=== PATIENT | female | born 1950 | race Caucasian/White ===

== ENCOUNTER 2017-10-28 11:30 | Inpatient (IN) | payer MEDICARE, BC ==
[2017-10-28] MEDS ORDERED: Meropenem 500 MG SDV ONE (11:55)
[2017-10-28] MEDS ORDERED: Scopolamine 1.5 MG Transdermal Patch TOP SCH (13:05)
[2017-10-28] MEDS ORDERED: Acetaminophen 500 MG Tab PO ONE (13:05)
[2017-10-28] MEDS ORDERED: Lactated Ringers 1,000 ML IV SCH (13:15)
[2017-10-28] MEDS ORDERED: cefOXitin 2 GM in Premix Bag 1 BAG IV ONE (13:15)
[2017-10-28] MEDS ORDERED: Diltiazem 120 MG Cap.CD PO ONE ×2 (13:24→13:30)
--- NOTE | 2017-10-28 13:26 | PCM.HP ---
H&P History of Present Illness - General Date of Service: 10/28/17 - History of Present Illness Initial Comments - Free Text/Narative: Emma started to have severe abdominal pain Wednesday night and this is . The pain was so severe on Wednesday that she couldn't even straighten up. She had worse pain than she's ever had before and had low-grade fevers. She did not have any diarrhea but could not eat as the pain was a grade 8/10 and she almost came to the emergency room because of severe pain. She's feeling better yesterday. The pain was very minimal. She's never had a similar problem before. - Related Data Allergies/Adverse Reactions: Allergies Allergy/AdvReac Type Severity Reaction Status Date / Time morphine AdvReac Vomiting Verified 10/28/17 13:18 Home Medications: Home Meds Furosemide [Lasix] 20 mg PO DAILY 04/03/15 [History] Diltiazem HCl [Cartia Xt] 240 mg PO DAILY 10/28/17 [History] Warfarin [Coumadin] 5 mg PO .Q3D 10/28/17 [History] Past Medical History HEENT History: Reports: Impaired Vision Cardiovascular History: Reports: Afib, Hypertension Gastrointestinal History: Reports: Colon Polyp, GI Bleed, Hemorrhoids, Other ( See Below) Other Gastrointestinal History: bleeding ulcer 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: Musculoskeletal History: Reports: Osteoarthritis Other Musculoskeletal History: right knee pain Endocrine/Metabolic History: Reports: Obesity/BMI 30+, Other (See Below) Other Endocrine/Metabolic History: pre diabetic - Infectious Disease History Infectious Disease History: Reports: Chicken Pox, Measles, Mumps, Rubella, Shingles - Past Surgical History HEENT Surgical History: Reports: Oral Surgery, Tonsillectomy, Other (See Below) Other HEENT Surgeries/Procedures: all wisdom teeth removed Cardiovascular Surgical History: Reports: Other (See Below) Other Cardiovascular Surgeries/Procedures: heart ablation for a fib GI Surgical History: Reports: Cholecystectomy, Colonoscopy, EGD Other GI Surgeries/Procedures: hemorrhoidectomy Female Surgical History: Reports: Hysterectomy Musculoskeletal Surgical History: Reports: Arthroscopic Knee - History Comment History Comment: Past Surgical History: Hysterectomy, Cholecystectomy, Rt Knee Laproscopic Meniscus Repair, Hemorrhoidectomy, Tonsillectomy, Attempted Cardioversion (Failed), Cardiac ablation for Afib. Ongoing medical problems: A- FIB, Morbid Obesity, Arthritis, Cataract, DM ll, HTN, Obstructive Sleep Apnea, . Preventive care: 10/13/17 A1c 6.0. 09/17/16 Lipids, CMP, CBC, A1c 6.2, TSH 0.68. 04/04/15 Colonoscopy, diverticuli. 03/26/15 Mammogram, normal. 08/31/13 Lexiscan Stress Test. 09/14/02 Colonoscopy, hx colon ca in family. 10/10/13 does not want a colonoscopy or FOBT.. 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 Quit Smoking 2012. Does Drink Alcohol. . Wears a seat belt. History was reviewed. Social & Family History - Family History Family Medical History: Noncontributory HEENT: Reports: Impaired Vision Cardiac: Reports: Hypertension : Reports: Renal Calculus Musculoskeletal: Reports: Gout Neurological: Reports: CVA Psychiatric: Reports: Anxiety, Depression Endocrine/Metabolic: Reports: Diabetes, type II Oncologic: Reports: Colon, Other (See Below) Other Oncologic Family History: stomach - Tobacco Use Smoking Status *Q: Former Smoker Years of Tobacco use: 3 Packs/Tins Daily: 0.2 Used Tobacco, but Quit: Yes Month/Year Tobacco Last Used: july Second Hand Smoke Exposure: No - Caffeine Use Caffeine Use: Reports: Coffee - Alcohol Use Days Per Week of Alcohol Use: 3 Number of Drinks Per Day: 1 Total Drinks Per Week: 3 - Recreational Drug Use Recreational Drug Use: No H&P Review of Systems - Review of Systems: Review Of Systems: See Below General: Reports: Fever, Weakness, Decreased Appetite HEENT: Reports: No Symptoms Pulmonary: Reports: No Symptoms Cardiovascular: Reports: No Symptoms Gastrointestinal: Reports: Abdominal Pain, Bloody Stool Genitourinary: Reports: No Symptoms Musculoskeletal: Reports: No Symptoms Skin: Reports: No Symptoms Psychiatric: Reports: No Symptoms Neurological: Reports: No Symptoms Hematologic/Lymphatic: Reports: No Symptoms Immunologic: Reports: No Symptoms Exam - Exam Exam: See Below - Vital Signs Weight: 247 lb 12.8 oz - Exam General: Alert, Oriented, 4 HEENT: PERRLA, Hearing Intact, Mucosa Moist & [place], Nares Patent, Normal Nasal Septum, Posterior Pharynx Clear, Conjunctiva Clear, EOMI, EACs Clear, TMs Clear Neck: Supple, Trachea Midline, 2 Lungs: Clear to Auscultation, Normal Respiratory Effort Cardiovascular: Regular Rate, Regular Rhythm GI/Abdominal Exam: Normal Bowel Sounds, Soft, No Organomegaly, No Distention, No Abnormal Bruit, No Mass, Pelvis Stable, Other (Pain to palpation mid lower abd.) Extremities: Normal Inspection Peripheral Pulses: 1+: Radial (L), Radial (R) Skin: Warm, Dry, Intact Neurological: Cranial Nerves Intact, Reflexes Equal Bilateral Neuro Extensive - Mental Status: Alert, Oriented x3, Normal Mood/Affect, Normal Cognition Neuro Extensive - Motor, Sensory, Reflexes: CN II-XII Intact, Normal Gait, Normal Reflexes DTR: 1+: Bicep (L), Bicep (R) Psychiatric: Alert, Normal Affect, Normal Mood Problem List Initiated/Reviewed/Updated: Yes Orders Last 24hrs: Active Orders 24 hr Category Date Time Status Incentive Spirometry [RT Incentive Spirometry] [RC] Care 10/28/17 13:16 Active ASDIRECTED CBC W/O DIFF,HEMOGRAM [HEME] Routine Lab 10/28/17 13:13 Ordered COMPREHENSIVE METABOLIC PN,CMP [CHEM] Routine Lab 10/28/17 13:13 Ordered INR,PT,PROTHROMBIN TIME [COAG] Routine Lab 10/28/17 13:13 Ordered MAGNESIUM [CHEM] Routine Lab 10/28/17 13:13 Ordered PHOSPHORUS [CHEM] Routine Lab 10/28/17 13:13 Ordered PRO B-TYPE NATRIUR PEPT,BNPPRO [CHEM] Stat Lab 10/28/17 13:15 Ordered Aztreonam/Dextrose-Water [Azactam in Dextrose,Iso- Med 10/28/17 13:30 Active Osmotic 1 GM/50 ML] 1 gm Premix Bag 1 bag IV ONETIME Dextrose 5%-Lactated Ringers 1,000 ml Med 10/28/17 14:15 Active IV ASDIRECTED Ketamine [Ketalar] Med 10/28/17 13:30 Once 32 mg IV ONETIME ONE Ketamine [Ketalar] 100 mg Med 10/28/17 13:30 Active Sodium Chloride 0.9% [Normal Saline] 99 ml IV ASDIRECTED Lactated Ringers [Ringers, Lactated] 1,000 ml Med 10/28/17 13:15 Active IV BOLUS Lidocaine 0.4%/D5W [Lidocaine 2 GM/D5W 500 ML] Med 10/28/17 13:30 Active 2 gm in 500 ml IV 2 mg/min Lidocaine 2% [Xylocaine 2%] Med 10/28/17 13:30 Once 124 mg IVPUSH ONETIME ONE Ropivacaine [Naropin 0.5%] 56 ml Med 10/28/17 13:30 Active Dexamethasone 8 mg EPINEPHrine [Adrenalin] 0.4 mg Sodium Chloride 0.9% [Normal Saline] 21.6 ml NERVRT ONETIME Scopolamine [Transderm-Scop] Med 10/28/17 13:05 Active 1.5 mg TOP Q72H Sequential Compression Device [OM.PC] Routine Oth 10/28/17 13:13 Ordered Medication Orders Ropivacaine 56 ml/Dexamethasone 8 mg/Epinephrine HCl 0.4 mg/ Sodium Chloride 21.6 ml 0 ml NERVRT ONETIME ONE Stop: 10/28/17 13:31 Lactated Ringer's (Ringers, Lactated) 1,000 mls @ 500 mls/hr IV BOLUS [facility] Dextrose/Lactated Ringer's (Dextrose 5%-Lactated Ringers) 1,000 mls @ 175 mls/ hr IV ASDIRECTED [facility] Lidocaine HCl/Dextrose (Lidocaine 2 Gm/D5w 500 Ml) 2 gm in 500 mls @ 30 mls/hr IV .[id number] [facility] Ketamine HCl 100 mg/ Sodium (Chloride) 100 mls @ 19.17 mls/hr IV ASDIRECTED [facility] Stop: 10/28/17 15:30 Aztreonam/Dextrose 1 gm/ (Premix) 50 mls @ 100 mls/hr IV ONETIME ONE Stop: 10/28/17 13:59 Ketamine HCl (Ketalar) 32 mg IV ONETIME ONE Stop: 10/28/17 13:31 Lidocaine HCl (Xylocaine 2%) 124 mg IVPUSH ONETIME ONE Stop: 10/28/17 13:31 Scopolamine (Transderm-Scop) 1.5 mg TOP Q72H [facility] Stop: 10/31/17 13:00 Last Admin: 10/28/17 13:14 Dose: 1.5 mg Assessment/Plan Comment:: Assessment/Plan: #1. Abdominal abscess secondary to diverticulitis. I have contacted Dr. Arita who will do a colon resection. #2. HTN: Will watch her BP closely and continue meds as needed. #3. Atrial Fib. She is on Warfarin with last INR of 2.0 on the 14th of this month. INR is pending. #4. Obesity: I feel she should be medically staable if INR is <2
[2017-10-28] MEDS ORDERED: Aztreonam/Dextrose-Water 1 GM in Premix Bag 1 BAG IV ONE (13:30)
[2017-10-28] MEDS ORDERED: Lidocaine 0.4%/D5W 2 GM/500 ML BAG IV SCH (13:30)
[2017-10-28] MEDS ORDERED: Ketamine 500 MG/5 ML MDV IV ONE (13:30)
[2017-10-28] MEDS ORDERED: Lidocaine 2% 100 MG/5 ML Syringe IVPUSH ONE (13:30)
[2017-10-28] MEDS ORDERED: Ropivacaine 56 ML, Dexamethasone 8 MG, EPINEPHrine 0.4 MG, Sodium Chloride 0.9% 21.6 ML NERVRT ONE ×4 (13:30)
[2017-10-28] MEDS ORDERED: fentaNYL 250 MCG/5 ML SDV ONE (15:12)
[2017-10-28] MEDS ORDERED: Glycopyrrolate 0.2 MG/ML 5 ML MDV ONE (15:13)
[2017-10-28] MEDS ORDERED: Dexamethasone 4 MG/ML SDV ONE (15:13)
[2017-10-28] MEDS ORDERED: Ondansetron 4 MG/2 ML SDV ONE (15:13)
[2017-10-28] MEDS ORDERED: Neostigmine Methylsulfate 1 MG/ML 5 ML Syringe ONE (15:13)
[2017-10-28] MEDS ORDERED: Succinylcholine 200 MG/10 ML MDV ONE (15:13)
[2017-10-28] MEDS ORDERED: Rocuronium 50 MG/5 ML Vial ONE (15:13)
[2017-10-28] MEDS ORDERED: Propofol 200 MG/20 ML SDV ONE (15:13)
[2017-10-28] MEDS ORDERED: Lactated Ringers 1,000 ML ONE (16:15)
[2017-10-28] MEDS ORDERED: Ondansetron 4 MG/2 ML SDV IVPUSH PRN (17:10)
[2017-10-28] MEDS ORDERED: hydrOXYzine HCl 100 MG/2 ML SDV IM PRN (17:11)
[2017-10-28] MEDS ORDERED: Glucagon,Human Recombinant 1 MG Vial IM PRN (17:15)
[2017-10-28] MEDS ORDERED: Glucose Gel 15 GM in 37.5 GM Tube PO PRN (17:15)
[2017-10-28] MEDS ORDERED: 50% Dextrose in Water 50 ML Syringe IVPUSH PRN (17:15)
[2017-10-28] MEDS ORDERED: Naloxone 0.4 MG/ML SDV IV PRN (17:17)
[2017-10-28] MEDS: Lidocaine 0.4%/D5W 2 GM/500 ML BAG IV SCH (17:40)
[2017-10-28] MEDS: SCOPOLAMINE PATCH CHECK TOP SCH (17:41)
[2017-10-28] MEDS: Pantoprazole 40 MG Vial IV SCH (17:46)
[2017-10-28] MEDS: cefOXitin 2 GM in Sodium Chloride 0.9% 50 ML IV SCH (19:42)
[2017-10-28] MEDS: HYDROmorphone/Normal Saline 15 MG/30 ML PCA IV PRN (19:57)
[2017-10-28] MEDS: Dextrose 5%-Lactated Ringers 1,000 ML IV SCH (21:05)
[2017-10-28] MEDS: Topiramate 25 MG Tab PO SCH ×2 (21:45→21:49)
[2017-10-28] MEDS: Insulin Aspart 100 Units/ML 3 ML Pen SUBCUT PRN (21:54)
[2017-10-29] MEDS: cefOXitin 2 GM in Sodium Chloride 0.9% 50 ML IV SCH ×4 (02:32→20:03)
[2017-10-29] MEDS: Dextrose 5%-Lactated Ringers 1,000 ML IV SCH ×4 (02:35→21:53)
[2017-10-29] MEDS: Insulin Aspart 100 Units/ML 3 ML Pen SUBCUT PRN ×2 (03:56→09:56)
[2017-10-29] MEDS: Pantoprazole 40 MG Vial IV SCH ×2 (05:45→17:54)
[2017-10-29] MEDS: Topiramate 25 MG Tab PO SCH (08:09)
[2017-10-29] MEDS: Diltiazem 120 MG Cap.CD PO SCH (08:11)
[2017-10-29] MEDS: Furosemide 20 MG Tab PO SCH (08:12)
[2017-10-29] MEDS: SCOPOLAMINE PATCH CHECK TOP SCH (08:13)
[2017-10-29] MEDS: Lidocaine 0.4%/D5W 2 GM/500 ML BAG IV SCH ×2 (11:17→15:44)
--- NOTE | 2017-10-29 12:55 | PN ---
DATE OF SERVICE: 10/29/2017 SUBJECTIVE: Emma is postop day #1. 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 Blood sugars have been 205 and 217. INR was 1.37 and PT was 14.9. Glucose this morning was 228, and BNP was 1981. IV intake was 2473. Carpenter output was 1000. KEN drain put out 85 of a pink serosanguineous drainage. REVIEW OF SYSTEMS: Remainder of review of systems is negative for any pertinent positives or negatives. OBJECTIVE: GENERAL: Emma Silva is a 67-year-old female. She is alert and orientated and sitting up in bed. VITAL SIGNS: TPR is 99.3, 118, 18, and blood pressure is 154/102. HEENT: Negative. NECK: Supple. HEART: Regular rate and rhythm. LUNGS: Clear. ABDOMEN: Dressings dry and intact. Abdominal binder is on, KEN drain is intact. EXTREMITIES: Without peripheral edema. ASSESSMENT: Exploratory laparotomy for intraabdominal abscess. PLAN: 1. Check PT, INR, and hemoglobin A1c today. Labs are pre-ordered, to be rechecked for tomorrow. Continue IV at current rate. 2. Good pulmonary toilet. 3. We will evaluate p.r.n. or in the a.m. Susan Urena PA-C /[id number]
[2017-10-30] MEDS: cefOXitin 2 GM in Sodium Chloride 0.9% 50 ML IV SCH ×4 (01:24→19:50)
[2017-10-30] MEDS: Dextrose 5%-Lactated Ringers 1,000 ML IV SCH ×4 (04:04→23:18)
[2017-10-30] MEDS: Pantoprazole 40 MG Vial IV SCH ×2 (05:12→17:20)
[2017-10-30] MEDS ORDERED: Furosemide 40 MG/4 ML VIAL IVPUSH ONE (08:00)
[2017-10-30] MEDS: Diltiazem 120 MG Cap.CD PO SCH (08:30)
[2017-10-30] MEDS: SCOPOLAMINE PATCH CHECK TOP SCH (09:12)
[2017-10-30] MEDS: Potassium Chloride 20 MEQ, Lidocaine 1% 2 ML in Sodium Chloride 0.9% 100 ML IV SCH ×3 (09:12→14:19)
[2017-10-30] MEDS: HYDROmorphone/Normal Saline 15 MG/30 ML PCA IV PRN (19:50)
[2017-10-30] MEDS: Docusate Sodium 100 MG Cap PO SCH (22:09)
[2017-10-31] MEDS: cefOXitin 2 GM in Sodium Chloride 0.9% 50 ML IV SCH ×3 (02:21→13:24)
[2017-10-31] MEDS: Pantoprazole 40 MG Vial IV SCH (08:10)
[2017-10-31] MEDS: Docusate Sodium 100 MG Cap PO SCH ×2 (08:49→22:43)
[2017-10-31] MEDS: Diltiazem 120 MG Cap.CD PO SCH (08:49)
[2017-10-31] MEDS: Furosemide 20 MG Tab PO SCH (08:49)
[2017-10-31] MEDS: SCOPOLAMINE PATCH CHECK TOP SCH (08:50)
[2017-10-31] MEDS: Dextrose 5%-Lactated Ringers 1,000 ML IV SCH ×2 (10:17→22:37)
--- NOTE | 2017-10-31 11:15 | PN ---
DATE OF SERVICE: 10/31/2017 SUBJECTIVE: Emma is reporting that she is passing gas. She has been up ambulating, tolerating her clear liquid diet with 820 in. Blood sugars range between 100 and 113. REVIEW OF SYSTEMS: Remainder of review of systems negative for any pertinent positives or negatives. OBJECTIVE: GENERAL: Emma Silva is a pleasant 67-year-old female. She is alert and orientated. VITAL SIGNS: TPR 98.1, 81, 16, blood pressure 138/75. HEENT: Negative. NECK: Supple. HEART: Regular rate and rhythm. LUNGS: Clear. ABDOMEN: Dressings dry and intact. Abdominal binder is on. EXTREMITIES: Without peripheral edema. GENITOURINARY: Carpenter catheter remains in, and her output has been 4675 with Lasix and her KEN drain put out 25 mL. ASSESSMENT: Exploratory laparotomy with rectosigmoid colon resection with coloproctostomy, drainage of pericolonic abscess, and mobilization of omentum for perforated sigmoid colon, diverticulitis, and percutaneous abscess. PLAN: 1. Consent to be signed for delayed primary closure for Wednesday11/01/2017, approximately 1300, IV sedation, Lam Arita MD, n.p.o. after midnight. 2. Lasix. Resume home Lasix. Check BMP in a.m. 3. Good pulmonary toilet. 4. We will evaluate p.r.n. or in a.m. Susan Urena PA-C /[id number]
--- NOTE | 2017-10-31 14:05 | PCM.PN ---
- General Info Date of Service: 10/31/17 - Review of Systems General: Reports: No Symptoms HEENT: Reports: No Symptoms Pulmonary: Reports: No Symptoms Cardiovascular: Reports: No Symptoms Gastrointestinal: Reports: No Symptoms Genitourinary: Reports: No Symptoms Musculoskeletal: Reports: No Symptoms Neurological: Reports: No Symptoms Psychiatric: Reports: No Symptoms - Patient Data Vitals - Most Recent: Last Vital Signs Temp 98.2 F 10/31/17 11:00 Pulse 81 10/31/17 11:00 Resp 18 10/31/17 11:00 BP 125/63 10/31/17 11:00 Pulse Ox 94 L 10/31/17 11:00 Weight - Most Recent: 256 lb I&O - Last 24 Hours: Intake & Output 10/30/17 10/31/17 10/31/17 22:59 06:59 14:59 Intake Total 1015 733 4016 Output Total 815 1260 2600 Balance 1125 -437 -1600 Lab Results Last 24 Hours: Laboratory Results - last 24 hr 10/31/17 10/31/17 10/31/17 Range/Units 05:18 05:18 05:18 WBC 7.7 (4.5-11.0) K/uL RBC 3.34 (3.30-5.50) M/uL Hgb 11.0 L (12.0-15.0) g/dL Hct 35.0 L (36.0-48.0) % MCV 105 H (80-98) fL MCH 33 H (27-31) pg MCHC 31 L (32-36) % Plt Count 218 (150-400) K/uL PT 15.4 H (9.5-12.0) sec INR 1.42 H (0.80-1.20) Sodium 142 (140-148) mmol/L Potassium 3.6 (3.6-5.2) mmol/L Chloride 103 (100-108) mmol/L Carbon Dioxide 31 (21-32) mmol/L Anion Gap 7.8 (5.0-14.0) mmol/L BUN 7 (7-18) mg/dL Creatinine 1.0 (0.6-1.0) mg/dL Est Cr Clr Drug Dosing 55.29 mL/min Estimated GFR (MDRD) 55 L (>60) Glucose 101 (74-106) mg/dL Calcium 8.5 (8.5-10.1) mg/dL Phosphorus 3.9 (2.5-4.9) mg/dL Magnesium 1.8 (1.8-2.4) mg/dL Total Bilirubin 0.7 (0.2-1.0) mg/dL AST 21 (15-37) U/L ALT 23 (12-78) U/L Alkaline Phosphatase 62 (46-116) U/L NT-Pro-B Natriuret Pep 1873 H (5-125) pg/mL Total Protein 5.5 L (6.4-8.2) g/dL Albumin 2.0 L (3.4-5.0) g/dL Globulin 3.5 (2.3-3.5) g/dL Albumin/Globulin Ratio 0.6 L (1.2-2.2) Iain Results Last 24 Hours: Microbiology 10/28/17 14:48 Gram Stain - Final Abdomen - Abscess Wound Culture - Final NO GROWTH AFTER 3 DAYS Anaerobic Culture - Final NO GROWTH AFTER 3 DAYS 10/28/17 15:24 Gram Stain - Final Abdomen - Abscess Wound Culture - Preliminary NO GROWTH AFTER 2 DAYS Anaerobic Culture - Preliminary NO GROWTH AFTER 2 DAYS Med Orders - Current: Current Medications Dextrose (Glutose 15) 15 gm PO ASDIRECTED PRN PRN Reason: HYPOGLYCEMIA Dextrose/Water (Dextrose 50% In Water) 50 ml IVPUSH ASDIRECTED PRN PRN Reason: HYPOGLYCEMIA Digoxin (Lanoxin) 250 mcg PO DAILY [facility] Diltiazem HCl (Cardizem Cd) 240 mg PO DAILY [facility] Last Admin: 10/31/17 08:49 Dose: 240 mg Docusate Sodium (Colace) 100 mg PO BID [facility] Last Admin: 10/31/17 08:49 Dose: 100 mg Furosemide (Lasix) 20 mg PO DAILY [facility] Last Admin: 10/31/17 08:49 Dose: 20 mg Glucagon (Glucagen) 1 mg IM ASDIRECTED PRN PRN Reason: HYPOGLYCEMIA Hydromorphone HCl (Dilaudid Conciliator 15 Mg In Ns 30 Ml) 0 mg IV ASDIRECTED PRN; Protocol PRN Reason: PRIVATE PILOT PAIN CONTROL Last Admin: 10/30/17 19:50 Dose: 15 mg Hydroxyzine HCl (Vistaril) 100 mg IM Q4H PRN PRN Reason: PAIN Last Admin: 10/28/17 17:37 Dose: 100 mg Lactated Ringer's (Ringers, Lactated) 1,000 mls @ 500 mls/hr IV BOLUS [facility] Last Admin: 10/28/17 13:25 Dose: 500 mls/hr Cefoxitin Sodium 2 gm/ Sodium (Chloride) 50 mls @ 100 mls/hr IV Q6H [facility] Stop: 10/31/17 14:29 Last Admin: 10/31/17 13:24 Dose: 100 mls/hr Dextrose/Lactated Ringer's (Dextrose 5%-Lactated Ringers) 1,000 mls @ 100 mls/ hr IV ASDIRECTED [facility] Last Admin: 10/31/17 10:17 Dose: 100 mls/hr Insulin Aspart (Novolog) 0 unit SUBCUT Q6H PRN; Protocol PRN Reason: LOW CORRECTIONAL DOSE Last Admin: 10/29/17 09:56 Dose: 1 units Naloxone HCl (Narcan) 0.1 mg IV ASDIRECTED PRN PRN Reason: decreased respiratory rate Scopolamine Patch (Check) 1 each TOP DAILY [facility] Last Admin: 10/31/17 08:50 Dose: Not Given Ondansetron HCl (Zofran) 4 mg IVPUSH Q4H PRN PRN Reason: NAUSEA Pantoprazole Sodium (Protonix Iv) 40 mg IV Q24H [facility] Last Admin: 10/31/17 08:10 Dose: 40 mg Potassium Chloride (Potassium Chloride) 10 meq PO BID [facility] Discontinued Medications Acetaminophen (Tylenol Extra Strength) 1,000 mg PO ONETIME ONE Stop: 10/28/17 13:06 Last Admin: 10/28/17 13:12 Dose: 1,000 mg Ropivacaine 56 ml/Dexamethasone 8 mg/Epinephrine HCl 0.4 mg/ Sodium Chloride 21.6 ml 0 ml NERVRT ONETIME ONE Stop: 10/28/17 13:31 Last Admin: 10/28/17 14:59 Dose: 2 syringe Dexamethasone (Dexamethasone) Confirm Administered Dose 4 mg .ROUTE .STK-MED ONE Stop: 10/28/17 15:14 Diltiazem HCl (Cardizem Cd) 240 mg PO ONETIME ONE Stop: 10/28/17 13:31 Last Admin: 10/28/17 13:37 Dose: 240 mg Fentanyl (Sublimaze) Confirm Administered Dose 250 mcg .ROUTE .STK-MED ONE Stop: 10/28/17 15:13 Fentanyl Citrate (Fentanyl) Confirm Administered Dose 500 mcg .ROUTE .K-MED ONE Stop: 10/28/17 13:49 Furosemide (Lasix) 40 mg IVPUSH ONETIME ONE Stop: 10/30/17 08:01 Last Admin: 10/30/17 08:29 Dose: 40 mg Glycopyrrolate (Robinul) Confirm Administered Dose 1 mg .ROUTE .K-MED ONE Stop: 10/28/17 15:14 Dextrose/Lactated Ringer's (Dextrose 5%-Lactated Ringers) 1,000 mls @ 175 mls/ hr IV ASDIRECTED [facility] Last Admin: 10/30/17 04:04 Dose: 175 mls/hr Cefoxitin Sodium 2 gm/ Premix 20 mls @ 400 mls/hr IV ONETIME ONE Stop: 10/28/17 13:17 Last Admin: 10/28/17 13:48 Dose: 400 mls/hr Lidocaine HCl/Dextrose (Lidocaine 2 Gm/D5w 500 Ml) 2 gm in 500 mls @ 30 mls/hr IV .[id number] [facility] Last Admin: 10/28/17 19:16 Dose: Not Given Ketamine HCl 100 mg/ Sodium (Chloride) 100 mls @ 19.17 mls/hr IV ASDIRECTED [facility] Stop: 10/28/17 15:30 Aztreonam/Dextrose 1 gm/ (Premix) 50 mls @ 100 mls/hr IV ONETIME ONE Stop: 10/28/17 13:59 Last Infusion: 10/28/17 14:35 Dose: Infused Lactated Ringer's (Ringers, Lactated) Confirm Administered Dose 1,000 mls @ as directed .ROUTE .[facility]-MED ONE Stop: 10/28/17 16:16 Lidocaine HCl/Dextrose (Lidocaine 2 Gm/D5w 500 Ml) 2 gm in 500 mls @ 22.5 mls/ hr IV .[id number] [facility] Stop: 10/29/17 16:00 Last Admin: 10/29/17 15:44 Dose: Not Given Potassium Chloride 20 meq/Lidocaine HCl 2 ml/ Sodium Chloride 112 mls @ 50 mls/ hr IV Q2H [facility] Stop: 10/30/17 14:59 Last Admin: 10/30/17 14:19 Dose: 50 mls/hr Ketamine HCl (Ketalar) 32 mg IV ONETIME ONE Stop: 10/28/17 13:31 Last Admin: 10/28/17 17:39 Dose: Not Given Lidocaine HCl (Xylocaine 2%) 124 mg IVPUSH ONETIME ONE Stop: 10/28/17 13:31 Last Admin: 10/28/17 17:40 Dose: Not Given Meropenem (Merrem) Confirm Administered Dose 500 mg .ROUTE .STK-MED ONE Stop: 10/28/17 11:56 Last Admin: 10/28/17 14:51 Dose: 500 mg Miscellaneous Information (Remove Patch) 1 ea TRDERM ONETIME ONE Stop: 10/31/17 12:01 Last Admin: 10/31/17 11:26 Dose: Not Given Neostigmine Methylsulfate (Neostigmine) Confirm Administered Dose 5 mg .ROUTE .STK-MED ONE Stop: 10/28/17 15:14 Ondansetron HCl (Zofran) Confirm Administered Dose 4 mg .ROUTE .STK-MED ONE Stop: 10/28/17 15:14 Pantoprazole Sodium (Protonix Iv) 40 mg IV Q12H [facility] Stop: 10/30/17 18:01 Last Admin: 10/30/17 17:20 Dose: 40 mg Propofol (Diprivan 20 Ml) Confirm Administered Dose 200 mg .ROUTE .STK-MED ONE Stop: 10/28/17 15:14 Rocuronium [place] (Zemuron) Confirm Administered Dose 50 mg .ROUTE .STK-MED ONE Stop: 10/28/17 15:14 Scopolamine (Transderm-Scop) 1.5 mg TOP Q72H [facility] Stop: 10/31/17 13:00 Last Admin: 10/28/17 13:14 Dose: 1.5 mg Succinylcholine Chloride (Quelicin) Confirm Administered Dose 200 mg .ROUTE .STK -MED ONE Stop: 10/28/17 15:14 Topiramate (Topamax) 50 mg PO BID [facility] Last Admin: 10/29/17 08:09 Dose: Not Given - Exam General: Alert, Oriented HEENT: Pupils Equal, Pupils Reactive, EOMI, Mucous Membr. Moist/[place] Neck: Supple Lungs: Clear to Auscultation, Normal Respiratory Effort Cardiovascular: Irregular Rhythm GI/Abdominal Exam: Normal Bowel Sounds Back Exam: Normal Inspection, Full Range of Motion Extremities: Normal Inspection, Normal Range of Motion, Non-Tender, No Pedal Edema, Normal Capillary Refill Peripheral Pulses: 1+: Radial (L), Radial (R) Skin: Warm, Dry, Intact Psy/Mental Status: Alert, Normal Affect, Normal Mood - Problem List Review Problem List Initiated/Reviewed/Updated: Yes - My Orders Last 24 Hours: My Active Orders 10/31/17 13:06 EKG 12 Lead [EK] Routine 10/31/17 13:07 EKG Documentation Completion [RC] ASDIRECTED 10/31/17 21:00 Potassium Chloride 10 meq PO BID 11/01/17 09:00 Digoxin [Lanoxin] 250 mcg PO DAILY - Plan Plan:: Assessment/Plan: #1. Abdominal abscess secondary to diverticulitis. Closure is pending tomorrow. #2. HTN: Will watch her BP closely and continue meds as needed. #3. Atrial Flutter. I saw she was in flutter and did a EKG which should flutter in a 3:1 block will begin Dig and also give a dose of coumadin which will not affect the surgery tomorrow. She has been going in and out of feb flutter for weeks by history. #4. Obesity: I feel she should be medically staable if INR is <2
[2017-10-31] MEDS: Digoxin 125 MCG Tab PO SCH (15:12)
[2017-10-31] MEDS: Warfarin 5 MG Tab PO SCH (16:13)
[2017-10-31] MEDS: Potassium Chloride 10 MEQ Cap.ER PO SCH (17:36)
[2017-10-31] MEDS: Acetaminophen 325 MG Tab PO PRN (22:47)
[2017-11-01] MEDS: Acetaminophen 325 MG Tab PO PRN ×2 (05:11→20:33)
[2017-11-01] MEDS: Pantoprazole 40 MG Vial IV SCH (07:49)
[2017-11-01] MEDS: Potassium Chloride 10 MEQ Cap.ER PO SCH ×2 (07:56→18:15)
--- NOTE | 2017-11-01 09:25 | PN ---
DATE OF SERVICE: 11/01/2017 SUBJECTIVE: Emma is postop day #4. She will be having delayed primary closure in a.m. Vital signs have been stable. She has been up ambulating. Oral intake 1155. Urine output was 6400. KEN drain put out 40 mL of a light pink serosanguineous drainage. She has had 2 bowel movements. REVIEW OF SYSTEMS: Remainder of review of systems negative for any pertinent positives and negatives. OBJECTIVE: GENERAL: Emma Silva is a pleasant 67-year-old female. She is alert and orientated. VITAL SIGNS: TPR 96.4, 81, 20, and blood pressure 138/70. HEENT: Negative. NECK: Supple. HEART: Regular rate and rhythm. LUNGS: Clear. ABDOMEN: Dressings dry and intact. Incision remains open. KEN drain intact. EXTREMITIES: Without peripheral edema. ASSESSMENT: Exploratory laparotomy with rectosigmoid colon resection with coloproctostomy, drainage of pericolonic abscess and mobilization of omentum for perforated sigmoid colon, diverticulitis, and percutaneous abscess. Date of surgery, 10/28/2017, Lam Arita MD. PLAN: 1. To have delayed primary closure on 11/02/2017. IV sedation, Lam Arita MD. Time 0715 hours. 2. IV to TKO. 3. At midnight, restart D5LR to 100 mL per hour. 4. Discontinue Carpenter catheter. 5. Good pulmonary toilet. 6. We will evaluate p.r.n. or in a.m. See copy of Jaswinder Cruz MD, note. The patient was started on Coumadin and digoxin for atrial fibrillation. Susan Urena PA-C /[id number]
[2017-11-01] MEDS: Docusate Sodium 100 MG Cap PO SCH ×2 (09:44→20:35)
[2017-11-01] MEDS: Furosemide 20 MG Tab PO SCH (09:45)
[2017-11-01] MEDS: Diltiazem 120 MG Cap.CD PO SCH (09:46)
[2017-11-01] MEDS: SCOPOLAMINE PATCH CHECK TOP SCH (09:48)
--- NOTE | 2017-11-01 09:55 | PN ---
DATE OF SERVICE: 10/30/2017 SUBJECTIVE: Emma is postop day #2. Blood sugars have been ranging 135, 145. Vital signs have been stable. IV infusion amount was 4121. She remains to have her Carpenter catheter in for accurate intake and output that was 2525. KEN drain put out 20. Pain is controlled. She has been up ambulating. REVIEW OF SYSTEMS: Remainder of review of systems negative for any pertinent positives and negatives. OBJECTIVE: GENERAL: Emma Silva is a pleasant 67-year-old female. She is alert and orientated. VITAL SIGNS: TPR is 97.3, 85, 16. Blood pressure 144/56. HEENT: Negative. NECK: Supple. HEART: Regular rate and rhythm. LUNGS: Clear. ABDOMEN: Negative. Dressing dry and intact. EXTREMITIES: Without peripheral edema. SCDs are on. ASSESSMENT: Exploratory laparotomy with rectosigmoid colon resection with coloproctostomy, drainage of pericolonic abscess, and mobilization of omentum, for perforated sigmoid colon diverticulitis with pericolonic abscess. Date of surgery 10/22/2017. Surgeon, Lam Arita M.D. PLAN: 1. Decrease IV to 100 mL per hour. 2. KCl 60 mEq with lidocaine IV in 3 divided doses. 3. Lasix 40 mg IV. 4. Check CBC, CMP, mag, and phos in the a.m., and leave Carpenter catheter in for accurate intake and output. 5. Clear liquid diet to be taken sparingly. 6. We will evaluate p.r.n. or in the a.m. Susan Urena PA-C /[id number]
[2017-11-01] MEDS: Dextrose 5%-Lactated Ringers 1,000 ML IV SCH (12:13)
[2017-11-01] MEDS: Warfarin 5 MG Tab PO SCH (13:09)
[2017-11-01] MEDS: Digoxin 125 MCG Tab PO SCH (13:13)
[2017-11-01] MEDS ORDERED: Dextrose 5% in Water 1,000 ML IV SCH (23:55)
[2017-11-02] MEDS ORDERED: Propofol 200 MG/20 ML SDV ONE ×2 (06:10→07:19)
[2017-11-02] MEDS ORDERED: Lidocaine 1% with EPINEPHrine 1:100,000 50 ML MDV ONE (06:35)
[2017-11-02] MEDS ORDERED: Meropenem 500 MG SDV ONE (06:35)
[2017-11-02] MEDS ORDERED: Lactated Ringers 1,000 ML ONE (07:46)
[2017-11-02] MEDS: Pantoprazole 40 MG Vial IV SCH (09:04)
[2017-11-02] MEDS: Diltiazem 120 MG Cap.CD PO SCH (09:09)
[2017-11-02] MEDS: Furosemide 20 MG Tab PO SCH (09:09)
[2017-11-02] MEDS: oxyCODONE 5 MG Tab PO PRN ×4 (09:40→22:20)
[2017-11-02] MEDS: Potassium Chloride 10 MEQ Cap.ER PO SCH ×2 (09:41→17:19)
[2017-11-02] MEDS: Docusate Sodium 100 MG Cap PO SCH ×2 (09:41→22:20)
[2017-11-02] MEDS ORDERED: Warfarin 2.5 MG Tab PO ONE (13:00)
[2017-11-02] MEDS: Digoxin 125 MCG Tab PO SCH (13:08)
[2017-11-02] MEDS: Acetaminophen 325 MG Tab PO PRN ×2 (14:01→22:21)
[2017-11-03] MEDS: Acetaminophen 325 MG Tab PO PRN ×2 (04:04→09:03)
[2017-11-03] MEDS: oxyCODONE 5 MG Tab PO PRN ×2 (04:04→09:03)
[2017-11-03] MEDS: Potassium Chloride 10 MEQ Cap.ER PO SCH (07:26)
[2017-11-03] MEDS ORDERED: Pantoprazole 40 MG Tab.CR PO SCH (07:30)
[2017-11-03 07:32] VITALS: BP 133/78
[2017-11-03] MEDS: Diltiazem 120 MG Cap.CD PO SCH (08:56)
[2017-11-03] MEDS: Docusate Sodium 100 MG Cap PO SCH (08:56)
[2017-11-03] MEDS: Furosemide 20 MG Tab PO SCH (08:56)
[2017-11-03] MEDS ORDERED: Warfarin 5 MG Tab PO ONE (09:30)
--- NOTE | 2017-11-03 16:16 | OR ---
DATE OF PROCEDURE: 10/28/2017 PREOPERATIVE DIAGNOSIS: Perforated sigmoid colon diverticulitis with pericolonic abscess. POSTOPERATIVE DIAGNOSIS: Perforated sigmoid colon diverticulitis with pericolonic abscess. PROCEDURES: Exploratory laparotomy with: 1. Rectosigmoid colon resection with coloproctostomy (06571). 2. Drainage of pericolonic abscess (30755). 3. Mobilization of omentum into pelvis to limit pelvic and abdominal wall adhesion formation (70388). ANESTHESIA: General. LEAD TEACHER: Susan Urena PA-C, Olya Stiles, MS-3 INDICATION FOR PROCEDURE: A 67-year-old presenting with several day history of lower abdominal pain. A CT scan obtained earlier today showed a picture of a likely perforated sigmoid colon diverticulitis with pericolonic abscess. The abscess after review with the radiologist was felt not to be amenable to percutaneous drainage. Therefore, exploratory laparotomy, drainage of the abscess and resection will be undertaken. In general if this is the case, we will usually preform a primary anastomosis but she is aware there is a possibility that operative findings may indicate a temporary colostomy and potential risks per se including bleeding, infection, injury to underlying viscera, possible need for colostomy, as outlined above as well as possibility of cardiopulmonary, septic, or hemorrhagic complications leading to were discussed, and the patient wishes to proceed. DETAILS OF PROCEDURE: The patient was taken into the operating room and placed in the supine position. After general endotracheal anesthesia was induced, she was converted to a lithotomy position. Carpenter catheter was inserted. The abdomen was prepped and draped. Bilateral transversus abdominis plane blocks were then placed focusing on the lower half of the abdomen using continuous ultrasound. Once these were in place, the abdomen was prepped and draped. A midline incision from the umbilicus down to the pubis was made and carried down through the full thickness abdominal wall. Upon entering the peritoneal cavity, the small bowel was then retracted walled off and the area of the abscess was then entered and cultures obtained. The patient had an obvious perforated sigmoid colon diverticulitis. The sigmoid colon was then divided at the point where it became soft and pliable and this then allowed division of the peritoneum along the lower sigmoid colon and upper rectum. The rectum was eventually divided initially somewhat higher than the ultimate point of division and then secondary divided somewhat further where it was much softer and more amenable for an adequate primary anastomosis. These divisions were stapled with RAVI black loads on the rectal side, with purple load on the sigmoid colon side. The underlying mesentery divided with combination of vascular mesenteric sebastien and two specimens delivered from the field. The anvil of a 28 mm EEA stapler was then placed into the now slightly opened lumen of the bladder end of the sigmoid colon. This was then re-stapled with a purple load and the anvil brought out through the most dependent portion of the colon. The CCK down into the pelvis more or less touching the area of the divided rectum without any tension and actually quite a bit of redundancy. The main body of the stapler then brought up rectally and the 2 components of the stapler then united and fired, thus completing the coloproctostomy. Upon removal of stapler, double donuts of mucosa were noted within it. At this point, the abdomen was irrigated with meropenem-containing saline solution as it had been initially after the initial drainage of the abscess. The anastomosis was then reinforced with some 3-0 Vicryl seromuscular stitch along with fibrin sealant. Single Hussein-Friedman drain was then placed through a stab wound in the left mid abdomen taken down adjacent to the anastomosis from there into the pelvis. The mobilization of the omentum was then undertaken thus bringing it down into the pelvis to separate the viscera from the pelvic and abdominal wall to limit recurrent adhesion formation. Note that the colon had been opened off the field and this appeared to be diverticulitis with no evidence of any malignant disease. At this point, the abdomen was once again irrigated. The peritoneum from linea linea semilunaris downward was then closed with #2 Vicryl stitch and then the anterior fascia closed for the length of the incision with #2 Vicryl stitch as well. The skin and subcutaneous tissue were felt to be at high risk for a wound infection. Primary closure was undertaken. Therefore, these were packed open for a planned delayed primary closure. The patient was taken to the recovery room in satisfactory condition. Physician emergency room physician assistant, Susan Urena, played an essential role in assisting in this case helping to position the patient, retract structures as needed as well as suturing and cutting sutures when indicated. Her presence improved the patient's safety and decreased operative time. Lam Arita MD /[id number]
--- NOTE | 2017-11-03 17:46 | OR ---
DATE OF PROCEDURE: 11/02/2017 PREOPERATIVE DIAGNOSIS: Open abdominal incision. POSTOPERATIVE DIAGNOSIS: Open abdominal incision. OPERATIVE PROCEDURE: Delayed primary closure of open abdominal incision. ANESTHESIA: IV sedation plus local. INDICATION FOR PROCEDURE: A 67-year-old status post open sigmoid colon resection for perforated diverticulitis with pericolonic abscess. At the time of the original procedure, the patient was felt to be at high risk for wound infection. The wound was therefore packed open for a planned delayed primary closure. Potential risks of the procedure including bleeding and infection were reviewed, and the patient wishes to proceed. DETAILS OF PROCEDURE: The patient was taken to the operating room, placed in a supine position. IV sedation was administered. After the previously placed abdominal dressing was taken down and the wound was found to be clean, the incision was then prepped and draped, anesthetized with 1% lidocaine mixed with Marcaine and irrigated with meropenem-containing saline solution through stab wound just to the upper edge of the incision on the right side. A small stab wound was placed and a 10-Khmer round Hussein-Friedman drain placed. The incision was then closed with 2 layers of 3-0 and 4-0 Vicryl stitch deep and sebastien for the skin. The drain was affixed with 4-0 Vicryl stitch and the patient was taken to the recovery room in satisfactory condition. There were no overt complications. Lam Arita MD /[id number]
--- NOTE | 2017-11-03 18:10 | PN ---
DATE OF SERVICE: 11/02/2017 The patient has been afebrile with stable vital signs. No major problems were noted overnight. She is eating and moving her bowels. She had the delayed primary closure and will resume diet. Switch over to oral pain medication today. She may be ready for discharge home tomorrow. Pro time remains subtherapeutic, and we will give her 7.5 mg of Coumadin today. Lam Arita MD /[id number]
--- NOTE | 2017-11-04 06:27 | DISCH ---
ADMISSION DIAGNOSES: Ruptured diverticula; atrial fibrillation, chronic anticoagulation therapy; type 2 diabetes mellitus, on no medications; osteoarthritis of knee; and hypertension. DISCHARGE DIAGNOSES: Exploratory laparotomy with rectosigmoid colon resection with coloproctostomy, drainage of pericolonic abscess and mobilization of omentum, for perforated sigmoid colon, diverticulitis, and percutaneous abscess. Date of surgery 10/28/2017; Lam Arita M.D. Delayed primary closure for open abdominal incision on 11/02/2017. HISTORY: Emma Silva developed abdominal pain 3 to 4 days prior to surgery. She did have a CT scan, which revealed a pericolonic abscess. After preoperative evaluation, discussion of possible risks and possible complications, she wished to proceed with surgical procedure. HOSPITAL COURSE: Emma had her surgery on 10/28/2017. She had no operative complications. On postop day #1, she remained n.p.o. and her pain was well managed. On postop day #2, potassium was replaced, IV decreased down to 100 mL per hour, and she was started on a clear liquid diet. On postop day #3, she continued on the clear liquid diet. She was given Lasix to increase her urine output. On postop day #4, she was scheduled for delayed primary closure on 11/02/2017. She was advanced to mechanical soft diet and received dietary instruction. She did have a delayed primary closure on 11/02/2017, and on 11/03/2017, she was ready to be discharged to home. She was having bowel movements. Oral intake adequate. Her PT was 12.4 and INR was 1.15. She has had no complications. Activity is good. She did receive dietary instruction. REVIEW OF SYSTEMS: Remainder of review of systems negative for any pertinent positives and negatives. OBJECTIVE: GENERAL: Emma Silva is a pleasant 67-year-old female. VITAL SIGNS: Height is 5 feet 8.11 inches, weight is 256 pounds. TPR 97.3, 84, 16. Blood pressure 133/78. HEENT: Negative. NECK: Supple. HEART: Regular rate and rhythm. LUNGS: Clear. ABDOMEN: [place] intact. She has a midline incisional KEN drain, round, which will be left in. Her peripheral KEN drain, which has been in from surgery, will be removed prior to discharge. EXTREMITIES: Without peripheral edema. DISPOSITION: Discharged to home. CONDITION: Stable and improving. FOLLOWUP: Followup appointmentwith Lam Arita M.D., on 11/10/2017 at 9:00 a.m. She is to have PT and INR checked at 8:30 before appointment. To call clinic department with any questions or decisions at . HOME MEDICATIONS: 1. Tylenol 650 mg oral q.4 hours p.r.n. pain. 2. Colace 100 mg oral b.i.d., #100 given. 3. Oxycodone 5 to 10 mg oral q.4 hours p.r.n. pain, #40. 4. Potassium chloride 10 mEq b.i.d. with meals, #60 with 5 refills. She is to resume her home medications of diltiazem, Cartia XT 240 mg daily; Lasix 20 mg oral daily; and Coumadin, she alternates 7.5 mg and 5 mg per routine. DISCHARGE INSTRUCTIONS: 1. Diet after discharge: Usual diet as tolerated. Drink 8 to 10 glasses of water a day. 2. Activity: No lifting greater than 10 pounds for 6 weeks. Other activity, walk 6 times daily inside your home. 3. Driving: Do not drive on pain medication. 4. Shower/bathing: May shower. 5. Notify provider if any fever, increased pain, nausea or vomiting. 6. Keep site clean and dry. Wear abdominal binder for 6 to 8 weeks. SPECIAL INSTRUCTIONS: 1. Strip, empty, measure, and record KEN drain 4 times a day and bring record of KEN drain to clinic appointment. 2. Use incentive spirometer 10 times every hour while awake.
== END 2017-11-03 10:05 | disposition home or self-care (01) | DRG 330 ==
LOC: EDSTATUS 11:30 → JP.MS 11:32 → JP.SDS 11:32 → JP.ICU 16:30 → JP.2SS 10-30 13:55
PROVIDERS: ADMIT Surgery; ATTEND Surgery
PROC: 0DBP0ZX Excision of Rectum, Open Approach, Diagnostic (ICD-10-PCS; principal; 2017-10-28)
PROC: 0D1N0ZP Bypass Sigmoid Colon to Rectum, Open Approach (ICD-10-PCS; 2017-10-28)
PROC: 0DBN0ZX Excision of Sigmoid Colon, Open Approach, Diagnostic (ICD-10-PCS; 2017-10-28)
PROC: 0W9G0ZX Drainage of Peritoneal Cavity, Open Approach, Diagnostic (ICD-10-PCS; 2017-10-28)
PROC: 0DNU0ZZ Release Omentum, Open Approach (ICD-10-PCS; 2017-10-28)
PROC: 3E0T3BZ Introduction of Anesthetic Agent into Peripheral Nerves and Plexi, Percutaneous Approach (ICD-10-PCS; 2017-10-28)
PROC: 0WQF0ZZ Repair Abdominal Wall, Open Approach (ICD-10-PCS; 2017-11-02)
DX: K57.20 Diverticulitis of large intestine with perforation and abscess without bleeding (principal); I48.92 Unspecified atrial flutter; Z48.1 Encounter for planned postprocedural wound closure; E11.9 Type 2 diabetes mellitus without complications; I10 Essential (primary) hypertension; Z79.01 Long term (current) use of anticoagulants; M17.10 Unilateral primary osteoarthritis, unspecified knee; G47.33 Obstructive sleep apnea (adult) (pediatric); Z87.891 Personal history of nicotine dependence; Z87.11 Personal history of peptic ulcer disease; E66.01 Morbid (severe) obesity due to excess calories; Z68.37 Body mass index [BMI] 37.0-37.9, adult; H54.7 Unspecified visual loss; Z88.5 Allergy status to narcotic agent; E87.6 Hypokalemia
CPT/HCPCS: 36415; 80048; 80053; 82962; 83036; 83735; 83880; 84100; 85027; 85610; 87070; 87075; 87205; 88302; 88305; 88307; 93005; 94762; A9270-GY; C9113; J0171; J0330; J0694; J1100; J1170; J1940; J2001; J2185; J2405; J2704; J2710; J2795; J3010; J3410; J3480; J3490; J7030; J7042; J7050; J7120

== ENCOUNTER 2017-11-08 18:21 | Observation (INO) | payer MEDICARE, BC ==
[2017-11-08] MEDS: Sodium Chloride 0.9% 1,000 ML IV SCH (20:50)
[2017-11-08] MEDS ORDERED: Ondansetron 4 MG/2 ML SDV IVPUSH ONE (21:25)
--- NOTE | 2017-11-08 21:59 | EDM.PDOC ---
ED HPI GENERAL MEDICAL PROBLEM - General Chief Complaint: Fever Stated Complaint: PAIN, FEVER, SHAKY, POST SURGERY Time Seen by Provider: 11/08/17 19:47 Source of Information: Reports: Patient History Limitations: Reports: No Limitations - History of Present Illness INITIAL COMMENTS - FREE TEXT/NARRATIVE: Abdominal pain: This is a 67-year-old female presents emergency room by private vehicle, reports was recently hospitalized with abdominal abscess and had surgery on 10/28/17, delayed primary closure on 11/02/17 at 11/03/17. She was discharged to home on 11/03/17. After that time she reports feeling okay, no worsening pain, then today felt very ill with abdominal pain, fever 101, nausea , shaking chills and increased pain. Last bowel movement 11/07/17 Able to eat a yogurt this morning otherwise no other foods taken today. Onset: Today Duration: Hour(s):, Getting Worse Location: Reports: Abdomen Quality: Reports: Ache Severity: Moderate Improves with: Reports: None Worsens with: Reports: None Associated Symptoms: Reports: Fever/Chills, Nausea/Vomiting Treatments DRY MAN: Reports: Acetaminophen (For fever control) Abdominal Pain Score (Numeric/FACES): 5 - Related Data Allergies Allergy/AdvReac Type Severity Reaction Status Date / Time morphine AdvReac Vomiting Verified 11/08/17 19:39 Home Meds: Home Meds Furosemide [Lasix] 20 mg PO DAILY 04/03/15 [History] Diltiazem HCl [Cartia Xt] 240 mg PO DAILY 10/28/17 [History] Warfarin [Coumadin] 5 mg PO .Q3D 10/28/17 [History] Acetaminophen [Tylenol] 650 mg PO Q4H PRN tablet 11/03/17 [Rx] Docusate Sodium [Colace] 100 mg PO BID #100 cap 11/03/17 [Rx] Potassium Chloride 10 meq PO BIDMEALS #60 cap.er 11/03/17 [Rx] oxyCODONE 5 - 10 mg PO Q4H PRN #40 tablet 11/03/17 [Rx] Past Medical History HEENT History: Reports: Impaired Vision Cardiovascular History: Reports: Afib, Hypertension Respiratory History: Reports: None Gastrointestinal History: Reports: Colon Polyp, Diverticulosis, GI Bleed, Hemorrhoids, Other (See Below) Other Gastrointestinal History: bleeding ulcer Genitourinary History: Reports: None [employer]GR[employer] 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: Musculoskeletal History: Reports: Osteoarthritis Other Musculoskeletal History: right knee pain Neurological History: Reports: None Psychiatric History: Reports: None Endocrine/Metabolic History: Reports: Obesity/BMI 30+, Other (See Below) Other Endocrine/Metabolic History: pre diabetic Hematologic History: Reports: None, Anticoagulation Therapy Immunologic History: Reports: None Oncologic (Cancer) History: Reports: None Dermatologic History: Reports: None - Infectious Disease History Infectious Disease History: Reports: Chicken Pox, Measles, Mumps, Rubella, Shingles - Past Surgical History Head Surgeries/Procedures: Reports: None HEENT Surgical History: Reports: Oral Surgery, Tonsillectomy, Other (See Below) Other HEENT Surgeries/Procedures: all wisdom teeth removed Cardiovascular Surgical History: Reports: Other (See Below) Other Cardiovascular Surgeries/Procedures: heart ablation for a fib, cardioversions Respiratory Surgical History: Reports: None GI Surgical History: Reports: Cholecystectomy, Colonoscopy, EGD, Polypectomy, Small Bowel Other GI Surgeries/Procedures: hemorrhoidectomy Female Surgical History: Reports: Hysterectomy, Salpingo-Oophorectomy Endocrine Surgical History: Reports: None Neurological Surgical History: Reports: None Musculoskeletal Surgical History: Reports: Arthroscopic Knee, Knee Replacement Oncologic Surgical History: Reports: None Dermatological Surgical History: Reports: None - History Comment History Comment: Past Surgical History: Hysterectomy, Cholecystectomy, Rt Knee Laproscopic Meniscus Repair, Hemorrhoidectomy, Tonsillectomy, Attempted Cardioversion (Failed), Cardiac ablation for Afib. Ongoing medical problems: A- FIB, Morbid Obesity, Arthritis, Cataract, DM ll, HTN, Obstructive Sleep Apnea, . Preventive care: 10/13/17 A1c 6.0. 09/17/16 Lipids, CMP, CBC, A1c 6.2, TSH 0.68. 04/04/15 Colonoscopy, diverticuli. 03/26/15 Mammogram, normal. 08/31/13 Lexiscan Stress Test. 09/14/02 Colonoscopy, hx colon ca in family. 10/10/13 does not want a colonoscopy or FOBT.. 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 Quit Smoking 2012. Does Drink Alcohol. . Wears a seat belt. History was reviewed. Social & Family History - Family History Family Medical History: Noncontributory HEENT: Reports: Impaired Vision Cardiac: Reports: Hypertension : Reports: Renal Calculus Musculoskeletal: Reports: Gout Neurological: Reports: CVA Psychiatric: Reports: Anxiety, Depression Endocrine/Metabolic: Reports: Diabetes, type II Oncologic: Reports: Colon, Other (See Below) Other Oncologic Family History: stomach - Tobacco Use Smoking Status *Q: Never Smoker Years of Tobacco use: 3 Packs/Tins Daily: 0.2 Used Tobacco, but Quit: Yes Month/Year Tobacco Last Used: july Second Hand Smoke Exposure: No - Caffeine Use Caffeine Use: Reports: Coffee - Alcohol Use Days Per Week of Alcohol Use: 3 Number of Drinks Per Day: 2 Total Drinks Per Week: 6 - Recreational Drug Use Recreational Drug Use: No ED ROS GENERAL - Review of Systems Review Of Systems: See Below Constitutional: Reports: Fever, Chills, Malaise, Fatigue, Decreased Appetite HEENT: Reports: No Symptoms Respiratory: Reports: No Symptoms Cardiovascular: Reports: No Symptoms Endocrine: Reports: No Symptoms GI/Abdominal: Reports: Abdominal Pain, Decreased Appetite, Nausea : Reports: No Symptoms Musculoskeletal: Reports: No Symptoms Skin: Reports: Erythema (Surrounding surgical wound and KEN site), Wound Neurological: Reports: No Symptoms Psychiatric: Reports: No Symptoms Hematologic/Lymphatic: Reports: No Symptoms Immunologic: Reports: No Symptoms ED EXAM, GI/ABD - Physical Exam Exam: See Below Exam Limited By: No Limitations General Appearance: Alert, Mild Distress Eyes: Bilateral: Normal Appearance, EOMI Ears: Normal External Exam, Normal Canal, Hearing Grossly Normal, Normal TMs Nose: Normal Inspection, Normal Mucosa, No Blood Throat/Mouth: Normal Inspection, Normal Lips, Normal Teeth, Normal Gums, Normal Oropharynx, Normal Voice, No Airway Compromise Head: Atraumatic, Normocephalic Neck: Normal Inspection, Supple, Non-Tender, Full Range of Motion Respiratory/Chest: No Respiratory Distress, Lungs Clear, Normal Breath Sounds, No Accessory Muscle Use, Chest Non-Tender Cardiovascular: No Murmur, Irregularly Irregular GI/Abdominal Exam: Other (Midline surgical incision is noted with sebastien. Has for by 10 cm area of erythema pain and scant discharge from JVP opening. Generalized abdominal tenderness/pain) (Female) Exam: Deferred Rectal (Female) Exam: Deferred Back Exam: Normal Inspection, Full Range of Motion Extremities: Normal Inspection, Normal Range of Motion Neurological: Normal Cognition, Normal Gait, No Motor/Sensory Deficits Psychiatric: Normal Affect, Normal Mood Skin Exam: Warm, Erythema (Surrounding the surgical incision and KEN site), Increased Warmth (Surrounding surgical site.), Wound/Incision (Midline surgical incision with sebastien, proximal incision with a 4 x 10 cm area of erythema) Lymphatic: No Adenopathy Course - Vital Signs Last Recorded V/S: Last Vital Signs Temp 37.3 C 11/08/17 19:45 Pulse 62 11/08/17 19:45 Resp 17 11/08/17 19:45 BP 119/53 L 11/08/17 19:45 Pulse Ox 98 11/08/17 19:45 - Orders/Labs/Meds Orders: Active Orders 24 hr Category Date Time Status Patient Status Manage Transfer [TRANSFER] Routine ADT 11/08/17 21:26 Active Abdomen Pelvis wo Cont [CT] Stat Exams 11/08/17 19:56 Taken CULTURE BLOOD [BC] Urgent Lab 11/08/17 20:00 Received CULTURE BLOOD [BC] Urgent Lab 11/08/17 20:10 Received UA W/MICROSCOPIC [URIN] Urgent Lab 11/08/17 21:18 Ordered Sodium Chloride 0.9% [Normal Saline] 1,000 ml Med 11/08/17 20:00 Active IV ASDIRECTED Blood Culture x2 Reflex Set [OM.PC] Urgent Oth 11/08/17 19:54 Ordered Resuscitation Status Routine Resus Stat 11/08/17 21:32 Ordered Medication Orders Sodium Chloride (Normal Saline) 1,000 mls @ 150 mls/hr IV ASDIRECTED JACOB Last Admin: 11/08/17 20:50 Dose: 150 mls/hr Labs: Laboratory Tests 11/08/17 11/08/17 11/08/17 Range/Units 19:54 20:00 20:00 WBC 14.0 H (4.5-11.0) K/uL RBC 3.94 (3.30-5.50) M/uL Hgb 13.2 D (12.0-15.0) g/dL Hct 39.4 (36.0-48.0) % MCV 100 H (80-98) fL MCH 34 H (27-31) pg MCHC 34 (32-36) % Plt Count 297 (150-400) K/uL Neut % (Auto) 79 H (36-66) % Lymph % (Auto) 12 L (24-44) % Briscoe % (Auto) 7 H (2-6) % Eos % (Auto) 3 (2-4) % Baso % (Auto) 0 (0-1) % PT 17.1 H (9.5-12.0) sec INR 1.57 H (0.80-1.20) Sodium (140-148) mmol/L Potassium (3.6-5.2) mmol/L Chloride (100-108) mmol/L Carbon Dioxide (21-32) mmol/L Anion Gap (5.0-14.0) mmol/L BUN (7-18) mg/dL Creatinine (0.6-1.0) mg/dL Est Cr Clr Drug Dosing mL/min Estimated GFR (MDRD) (>60) Glucose (74-106) mg/dL Lactic Acid 1.0 (0.4-2.0) mmol/L Calcium (8.5-10.1) mg/dL Magnesium (1.8-2.4) mg/dL Total Bilirubin (0.2-1.0) mg/dL AST (15-37) U/L ALT (12-78) U/L Alkaline Phosphatase (46-116) U/L Total Protein (6.4-8.2) g/dL Albumin (3.4-5.0) g/dL Globulin (2.3-3.5) g/dL Albumin/Globulin Ratio (1.2-2.2) Urine Color Urine Appearance Urine pH (4.5-8.0) Ur Specific Clementon (1.008-1.030) Urine Protein (NEGATIVE) mg/dL Urine Glucose (UA) (NEGATIVE) mg/dL Urine Ketones (NEGATIVE) mg/dL Urine Occult Blood (NEGATIVE) Urine Nitrite (NEGATIVE) Urine Bilirubin (NEGATIVE) Urine Urobilinogen (NORMAL) mg/dL Ur Leukocyte Esterase (NEGATIVE) Urine RBC (0-5) Urine WBC (0-5) Ur Epithelial Cells Amorphous Sediment Urine Bacteria Urine Mucus 11/08/17 11/08/17 Range/Units 20:00 21:18 WBC (4.5-11.0) K/uL RBC (3.30-5.50) M/uL Hgb (12.0-15.0) g/dL Hct (36.0-48.0) % MCV (80-98) fL MCH (27-31) pg MCHC (32-36) % Plt Count (150-400) K/uL Neut % (Auto) (36-66) % Lymph % (Auto) (24-44) % Briscoe % (Auto) (2-6) % Eos % (Auto) (2-4) % Baso % (Auto) (0-1) % PT (9.5-12.0) sec INR (0.80-1.20) Sodium 140 (140-148) mmol/L Potassium 3.8 (3.6-5.2) mmol/L Chloride 103 (100-108) mmol/L Carbon Dioxide 28 (21-32) mmol/L Anion Gap 9.4 (5.0-14.0) mmol/L BUN 11 D (7-18) mg/dL Creatinine 0.8 (0.6-1.0) mg/dL Est Cr Clr Drug Dosing 68.84 mL/min Estimated GFR (MDRD) > 60 (>60) Glucose 116 H (74-106) mg/dL Lactic Acid (0.4-2.0) mmol/L Calcium 9.1 (8.5-10.1) mg/dL Magnesium 1.9 (1.8-2.4) mg/dL Total Bilirubin 0.7 (0.2-1.0) mg/dL AST 16 (15-37) U/L ALT 20 (12-78) U/L Alkaline Phosphatase 77 (46-116) U/L Total Protein 6.6 (6.4-8.2) g/dL Albumin 3.0 L (3.4-5.0) g/dL Globulin 3.6 H (2.3-3.5) g/dL Albumin/Globulin Ratio 0.8 L (1.2-2.2) Urine Color Yellow Urine Appearance Clear Urine pH 7.0 (4.5-8.0) Ur Specific Clementon 1.010 (1.008-1.030) Urine Protein Negative (NEGATIVE) mg/dL Urine Glucose (UA) Normal (NEGATIVE) mg/dL Urine Ketones Negative (NEGATIVE) mg/dL Urine Occult Blood Negative (NEGATIVE) Urine Nitrite Negative (NEGATIVE) Urine Bilirubin Negative (NEGATIVE) Urine Urobilinogen 1 (NORMAL) mg/dL Ur Leukocyte Esterase Small (NEGATIVE) Urine RBC 0-5 (0-5) Urine WBC 5-10 H (0-5) Ur Epithelial Cells Few Amorphous Sediment Not seen Urine Bacteria Moderate Urine Mucus Few Meds: Medications Generic Name Dose Route Start Last Admin Trade Name Shreyas PRN Reason Stop Dose Admin Sodium Chloride 1,000 mls @ 150 mls/hr 11/08/17 20:00 11/08/17 20:50 Normal Saline IV 150 mls/hr ASDIRECTED JACOB Administration Discontinued Medications Generic Name Dose Route Start Last Admin Trade Name Shreyas PRN Reason Stop Dose Admin Ondansetron HCl 4 mg 11/08/17 21:25 Zofran IVPUSH 11/08/17 21:26 ONETIME ONE - Re-Assessments/Exams Free Text/Narrative Re-Assessment/Exam: 11/08/17 22:01 -Consulted with Dr. Arita after abdominal pelvis CT and labs are completed. -will admit patient for further care and treatment to surgical service. Discuss plan of care and reviewed CT report with patient, she agrees with plan of care. Departure - Departure Time of Disposition: 22:02 Disposition: Refer to Observation Clinical Impression: Cellulitis - Discharge Information Referrals: Jaswinder Cruz Sr, MD [Primary Care Provider] - - Problem List & Annotations (1) Cellulitis SNOMED Code(s): 430410746 Code(s): L03.90 - CELLULITIS, UNSPECIFIED Status: Acute Priority: High Current Visit: Yes Qualifiers: Site of cellulitis of trunk: abdominal wall - Problem List Review Problem List Initiated/Reviewed/Updated: Yes - My Orders Last 24 Hours: My Active Orders 11/08/17 19:54 Blood Culture x2 Reflex Set [OM.PC] Urgent 11/08/17 19:56 Abdomen Pelvis wo Cont [CT] Stat 11/08/17 20:00 CULTURE BLOOD [BC] Urgent Sodium Chloride 0.9% [Normal Saline] 1,000 ml IV ASDIRECTED 11/08/17 20:10 CULTURE BLOOD [BC] Urgent 11/08/17 21:18 UA W/MICROSCOPIC [URIN] Urgent 11/08/17 21:26 Patient Status Manage Transfer [TRANSFER] Routine 11/08/17 21:32 Resuscitation Status Routine - Assessment/Plan Last 24 Hours: My Active Orders 11/08/17 19:54 Blood Culture x2 Reflex Set [OM.PC] Urgent 11/08/17 19:56 Abdomen Pelvis wo Cont [CT] Stat 11/08/17 20:00 CULTURE BLOOD [BC] Urgent Sodium Chloride 0.9% [Normal Saline] 1,000 ml IV ASDIRECTED 11/08/17 20:10 CULTURE BLOOD [BC] Urgent 11/08/17 21:18 UA W/MICROSCOPIC [URIN] Urgent 11/08/17 21:26 Patient Status Manage Transfer [TRANSFER] Routine 11/08/17 21:32 Resuscitation Status Routine Plan: Admit to surgical service Dr. Lam Arita admitting
[2017-11-08] MEDS ORDERED: Albuterol 0.083% 2.5 MG/3 ML Neb Soln NEB PRN (22:23)
[2017-11-08] MEDS ORDERED: Zolpidem 5 MG Tab PO PRN (22:23)
[2017-11-08] MEDS ORDERED: Naloxone 0.4 MG/ML SDV IVPUSH PRN (22:23)
[2017-11-08] MEDS ORDERED: LORazepam 2 MG/ML SDV IV PRN (22:23)
[2017-11-08] MEDS ORDERED: HYDROmorphone/Normal Saline 15 MG/30 ML PCA IV PRN (22:23)
[2017-11-08] MEDS ORDERED: Pantoprazole 40 MG Vial IV ONE (22:23)
[2017-11-08] MEDS ORDERED: Albuterol/Ipratropium 3.0-0.5 MG/3 ML Neb Soln NEB PRN (22:23)
[2017-11-08] MEDS ORDERED: Ondansetron 4 MG/2 ML SDV IV PRN (22:23)
[2017-11-08] MEDS: Ampicillin/Sulbactam Na 3 GM in Sodium Chloride 0.9% 100 ML IV SCH (23:40)
[2017-11-08] MEDS: Acetaminophen 325 MG Tab PO PRN (23:57)
[2017-11-09] MEDS: Sodium Chloride 0.9% 1,000 ML IV SCH (04:41)
[2017-11-09] MEDS: Ampicillin/Sulbactam Na 3 GM in Sodium Chloride 0.9% 100 ML IV SCH ×2 (04:41→11:14)
[2017-11-09] MEDS ORDERED: Potassium Chloride 10 MEQ Cap.ER PO SCH (08:00)
[2017-11-09] MEDS ORDERED: Diltiazem 120 MG Cap.CD PO SCH (09:00)
[2017-11-09] MEDS ORDERED: Furosemide 20 MG Tab PO SCH (09:00)
[2017-11-09] MEDS: Acetaminophen 325 MG Tab PO PRN (09:16)
[2017-11-09 11:11] VITALS: BP 112/64
--- NOTE | 2017-11-09 11:53 | DISCH ---
ADMISSION DIAGNOSES: Intraabdominal seroma, status post exploratory laparotomy; obesity; allergic rhinitis; type 2 diabetes mellitus; hypertension; history of atrial fibrillation; and chronic anticoagulation therapy. DISCHARGE DIAGNOSIS: Colonized seroma of previous exploratory laparotomy. HISTORY: Emma Silva was admitted through the emergency room for observation. She recently had a laparotomy on 10/28/2017 for abdominal abscess secondary to ruptured colon and delayed primary closure on 11/02/2017. She was discharged on 11/07/2017, and she presented last evening to the emergency room with abdominal pain, fever of 101, nausea, chills, and increased abdominal pain. She was admitted to the hospital for observation. Lam Arita MD, removed sebastien and opened wound, which was superficial and packed open incision with 4x4s. She was found to have a colonized seroma. PHYSICAL EXAMINATION: GENERAL: Emma Silva is a 67-year-old female. VITAL SIGNS: Height is 5 feet 8 inches. Weight is 243 pounds. TPR is 97.9, 81, 16, and blood pressure 125/78. HEENT: Negative. NECK: Supple. HEART: Regular rate and rhythm. LUNGS: Clear. ABDOMEN: Dressings dry and intact. Abdominal binder is on. EXTREMITIES: Without peripheral edema. DISPOSITION: Discharged to home. CONDITION: Stable and improving. FOLLOWUP: She is to follow up tomorrow, on 11/10/2017, at 9 a.m. with already scheduled appointment. DISCHARGE MEDICATIONS: Resume all home medications. ACTIVITY: No lifting greater than 10 pounds. Keep dressing dry and intact. No showering until dressing is changed in the clinic tomorrow. DISCHARGE INSTRUCTIONS: Notify provider if any fever, increased pain, nausea, or vomiting. Keep site clean and dry. The patient will be taught how to change dressings twice daily when she is in the clinic.
== END 2017-11-09 12:45 | disposition home or self-care (01) ==
LOC: JP.ED 18:21 → JP.MS 21:26
PROVIDERS: ADMIT Surgery; ATTEND Surgery
DX: K91.872 Postprocedural seroma of a digestive system organ or structure following a digestive system procedure (principal); I48.91 Unspecified atrial fibrillation; I10 Essential (primary) hypertension; E66.9 Obesity, unspecified; Z88.8 Allergy status to other drugs, medicaments and biological substances; Z79.01 Long term (current) use of anticoagulants; Z79.899 Other long term (current) drug therapy; Z68.30 Body mass index [BMI] 30.0-30.9, adult; Z87.891 Personal history of nicotine dependence
CPT/HCPCS: 36415; 74176; 80048; 80053; 81001; 83605; 83735; 85025; 85610; 87040; 96360; 99285; A9270; C9113; J0295; J1170; J2405; J7030; J7040

== ENCOUNTER 2022-11-26 06:01 | Day surgery (SDC) | payer MEDICARE ==
[2022-11-26] MEDS ORDERED: Sodium Chloride 0.9% 10 ML Syringe FLUSH PRN (06:30)
[2022-11-26 07:47] VITALS: BP 147/65; PULSE 53
== END 2022-11-26 08:07 | disposition home or self-care (01) ==
LOC: JP.SDS 06:01
PROVIDERS: ATTEND Ophthalmology
DX: H26.9 Unspecified cataract (principal); K57.32 Diverticulitis of large intestine without perforation or abscess without bleeding; Z87.09 Personal history of other diseases of the respiratory system; Z88.6 Allergy status to analgesic agent
CPT/HCPCS: 66984; J3490; V2632